=== PATIENT | male | born 1945 | race Caucasian/White ===

== ENCOUNTER 2018-04-19 00:56 | Inpatient (IN) | payer MEDICARE, OTHER ==
[~2018-04-19] VITALS: Ht 167.6 cm; Wt 72.6 kg
--- NOTE | 2018-04-19 01:13 | NUR ---
PT BIB PA WITH A C/O AGGRESSIVE BEHAVIOR TOWARDS CERTAIN STAFF (2 PEOPLE) AT [facility]. PT APPEARS PLEASANT AND COOPERATIVE. PT URINATED ON HIMSELF, BUT IS TRYING TO GIVE A URINE SAMPLE. PT WAS CHANGED INTO A GOWN AND IS ON THE MONITOR/CONTINUOUS PULSE OX. WILL CONTINUE TO MONITOR THE PT. Addendum: 04/19/18 at 0427 by KINZA PT URINATED ON HIMSELF. PT WAS CLEANED AND NEW LINENS APPLIED. PT REC'D A NEW GOWN.
--- NOTE | 2018-04-19 01:15 | NUR ---
PT IS UNABLE TO GIVE A URINE SAMPLE AT THIS TIME.
[2018-04-19] MEDS ORDERED: ESCI10TA PO (01:40)
[2018-04-19] MEDS ORDERED: LEVO50TA PO (01:40)
[2018-04-19] MEDS ORDERED: FOLI1TAB16 PO (01:40)
[2018-04-19] MEDS ORDERED: ATOR10TA PO (01:40)
[2018-04-19] MEDS ORDERED: ESOM40CA PO (01:40)
[2018-04-19] MEDS ORDERED: HYDR-4077 PO (01:58)
[2018-04-19] MEDS ORDERED: AMLO5TAB9 PO (01:58)
[2018-04-19] MEDS ORDERED: ACET-2067 PO (01:58)
[2018-04-19] MEDS ORDERED: ERGO400T7 PO (01:58)
[2018-04-19] MEDS ORDERED: DOCU-106 PO (01:58)
[2018-04-19] MEDS ORDERED: CARB200T PO (01:58)
[2018-04-19] MEDS ORDERED: MEMA7CAP PO (01:58)
[2018-04-19] MEDS ORDERED: GABA-532 PO (01:58)
[2018-04-19] MEDS ORDERED: ACET-2605 PO (01:58)
[2018-04-19] MEDS ORDERED: RAMI10CA69 PO (01:58)
[2018-04-19] MEDS ORDERED: LORA1TAB PO (01:58)
[2018-04-19] MEDS ORDERED: ASPI-605 PO (01:58)
[2018-04-19] MEDS ORDERED: LOSA100T31 PO (01:58)
[2018-04-19 02:08] LABS: BASOPHILS # (AUTO) 0.1 /CMM (0.0-0.2); BASOPHILS % (AUTO) 0.5 % (0.0-2.0); EOSINOPHILS % (AUTO) 0.6 % (0.0-6.0); HEMATOCRIT 40 % (39-51); HEMOGLOBIN 13.4 g/dL (13.5-17.5); LYMPHOCYTES # (AUTO) 1.4 /CMM (0.8-4.8); MEAN CORPUSCULAR HGB CONC 34 g/dl (31.0-36.0); MEAN CORPUSCULAR VOLUME 91 fL (80-96); MONOCYTES # (AUTO) 0.7 /CMM (0.1-1.30); MONOCYTES % (AUTO) 6.9 % (2.0-12.0); NEUTROPHILS # (AUTO) 7.3 /CMM (1.8-8.9); PLATELET COUNT (AUTO) 259 /CMM (150-450); RED BLOOD CELL COUNT(AUTO) 4.32 MIL/uL (4.5-6.0); WHITE BLOOD COUNT (AUTO) 9.5 K/uL (4.3-11.0)
[2018-04-19 02:19] LABS: CALCIUM, SERUM 9.1 mg/dL (8.5-10.1); CARBON DIOXIDE 29 mmol/L (21-32); CHLORIDE 97 mmol/L (98-107); CREATININE 0.7 mg/dL (0.6-1.3); GLUCOSE 104 mg/dL (74-106); POTASSIUM 3.8 mmol/L (3.5-5.1); SODIUM SERUM 133 mmol/L (136-145); UREA NITROGEN, BLOOD 10 mg/dL (7-18)
[2018-04-19 02:25] LABS: ALANINE AMINOTRANSFERASE 22 U/L (12-78); ALBUMIN 3.9 g/dL (3.4-5.0); ALCOHOL, BLOOD < 3 mg/dL (0-0); ALKALINE PHOSPHATASE 123 U/L (46-116); ASPARTATE AMINOTRANSFERASE 19 U/L (15-37); BILIRUBIN,DIRECT 0.1 mg/dL (0.0-0.2); BILIRUBIN,TOTAL 0.3 mg/dL (0.2-1.0); TOTAL PROTEIN, SERUM 7.4 g/dL (6.4-8.2)
[2018-04-19 02:26] LABS: ACETAMINOPHEN 0 ug/ml (10-30)
--- NOTE | 2018-04-19 03:05 | NUR ---
URINE SAMPLE OBTAINED
[2018-04-19 03:16] LABS: APPEARANCE,URINE CLEAR (CLEAR); BILIRUBIN,URINE NEGATIVE (NEGATIVE); BLOOD, URINE NEGATIVE Ery/uL (NEGATIVE); COLOR,URINE YELLOW (YELLOW); KETONES,URINE NEGATIVE (NEGATIVE); LEUKOCYTE ESTERASE ,URINE NEGATIVE (NEGATIVE); NITRITE, URINE NEGATIVE (NEGATIVE); PROTEIN,URINE NEGATIVE (NEGATIVE); UGLUCOSE NEGATIVE (NEGATIVE); UROBILINOGEN,URINE 0.2 EU/dL (0.2)
--- NOTE | 2018-04-19 03:45 | NUR ---
COY MCCLAIN LCSW, IS AT THE BEDSIDE EVALUATING THE PT.
--- NOTE | 2018-04-19 03:55 | NUR ---
PT IS BEING PLACED ON A 5150 HOLD BY COY MCCLAIN LCSW.
--- NOTE | 2018-04-19 03:56 | NUR ---
CALLING REPORT TO ANTONIO LAUREN.
--- NOTE | 2018-04-19 03:59 | NUR ---
PT IS GOING TO [facility]
--- NOTE | 2018-04-19 05:11 | NUR ---
PT APPEARS TO BE SLEEPING SOUNDLY WITH NO S/S OF PAIN OR DISTRESS.
--- NOTE | 2018-04-19 06:04 | NUR ---
PT IS GOING TO [facility]IA .
--- NOTE | 2018-04-19 06:15 | NUR ---
GPS ADMISSION NOTE, RECEIVED PATIENT FROM [facility]. PATIENT ARRIVED ON THIS UNIT AT 0615 VIA STRETCHER WITH 1 ART PROFESSOR ESCORT. PATIENT ADMITTED ON A 5150 HOLD FOR GD . PER HOLD PATIENT WAS CHOKING A FELLOW RESIDENT AT HIS FACILITY WHILE ACTING AGGRESSIVE TOWARD FACILITY STAFF. PATIENT HAS BEEN NON COMPLIANT WITH CARE. [facility] IS UNABLE TO PROVIDE THIS PATIENT FOOD INTERMEDIATE OR CLOTHING DUE TO A MENTAL DISORDER AND CURRENT MENTAL STATE OF THIS PATIENT. THE 5150 WAS REVIEWED AND THE DOCUMENTATION IN THE 5150 HOLD APPEARS TO REFLECT THE PRESENTATION OF THE PATIENT. UPON FACE TO FACE ASSESSMENT PATIENT IS CURRENTLY LYING IN BED AWAKE, HAS NO S/S OR COMPLAINTS OF PAIN. PATIENT IS DISPLAYING NO S/S OF APPARENT DISTRESS. PATIENT BREATHING IS UNLABORED WITH EQUAL RISE AND FALL OF THE CHEST. PATIENT IS ALERT AND ORIENTATED X 2 ON ROOM AIR. PATIENT ASSISTED WITH TURING AND REPOSITIONING Q2HR AND PRN FOR COMFORT AND CIRCULATION. PATIENT HAS NO NEEDS AT THIS TIME. PATIENT IS NOTED TO BEING ANXIOUS, DISHEVELED, DISORGANIZED, CONFUSED, COOPERATIVE, AND NEEDS REDIRECTION. PATIENT DENIES SUICIDE IDEATIONS AND HOMICIDAL IDEATIONS AT THIS TIME. PATIENT IS UNDER THE PSYCHIATRIC CARE OF DR. COLIN AND THE MEDICAL CARE OF DR PHAM. PATIENT BELONGINGS WERE INVENTORIED AND CHECKED FOR CONTRABAND. ALL CONTRABAND REMOVED AND STORED IN PATIENT HALLWAY LOCKER. PATIENT ADVANCED DIRECTIVES PREFERENCE, IMMUNIZATIONS QUESTIONER, NECESSARY PAPERWORK, AND SKIN ASSESSMENT COMPLETED. PATIENT ORIENTATED TO ROOM, FLOOR, AND STAFF WITH ALL QUESTIONS ANSWERED. PATIENT EDUCATED ON THE USE OF THE CALL RUBIO. PATIENT BED SIDE RAILS ARE UP X 2 FOR SAFETY. PATIENT BED IS LOCKED, LOW AND I WILL CONTINUE TO MONITOR THIS PATIENT Q 15 MIN WITH THE HELP OF STAFF TO MAINTAIN SAFETY.
[2018-04-19] MEDS ORDERED: MAGNESIUM HYDROXIDE 30 ML UDC PO PRN (06:30)
[2018-04-19] MEDS ORDERED: ACETAMINOPHEN 325 MG TABLET PO PRN (06:30)
[2018-04-19] MEDS ORDERED: MAG HYDROX/AL HYDROX/SIMETH 30 ML UDC PO PRN (06:30)
[2018-04-19 08:02] VITALS: BP 145/91
[2018-04-19] MEDS: GABAPENTIN 100 MG CAPSULE PO SCH ×2 (10:30→17:00)
[2018-04-19] MEDS: CARBAMAZEPINE 200 MG TABLET PO SCH ×2 (10:30→17:00)
[2018-04-19] MEDS: ESCITALOPRAM OXALATE (10 MG) 10 MG TABLET PO SCH (10:30)
[2018-04-19] MEDS: QUETIAPINE FUMARATE 25 MG TABLET PO SCH ×2 (10:30→17:00)
[2018-04-19 16:24] VITALS: BP 162/88
[2018-04-19] MEDS: MEMANTINE HCL 5 MG TABLET PO SCH (17:00)
[2018-04-19] MEDS: AMLODIPINE BESYLATE 5 MG TABLET PO SCH (17:00)
[2018-04-19] MEDS: DOCUSATE SODIUM 100 MG CAPSULE PO SCH (17:00)
[2018-04-19] MEDS: ACETAMINOPHEN 325 MG TABLET PO SCH (17:00)
[2018-04-19] MEDS: hydrALAZINE HCL 50 MG TABLET PO SCH (17:00)
[2018-04-19 20:00] VITALS: BP 146/92
[2018-04-19] MEDS: LORAZEPAM 0.5 MG TABLET PO PRN (20:51)
[2018-04-19] MEDS: ATORVASTATIN 10 MG TABLET PO SCH (21:07)
[2018-04-19] MEDS: TEMAZEPAM 7.5 MG CAPSULE PO PRN (23:20)
[2018-04-20 06:55] LABS: BASOPHILS # (AUTO) 0.1 /CMM (0.0-0.2); BASOPHILS % (AUTO) 0.8 % (0.0-2.0); EOSINOPHILS % (AUTO) 0.7 % (0.0-6.0); HEMATOCRIT 42 % (39-51); LYMPHOCYTES # (AUTO) 1.1 /CMM (0.8-4.8); LYMPHOCYTES % (AUTO) 10.1 % (20.0-44.0); MEAN CORPUSCULAR HGB CONC 34 g/dl (31.0-36.0); MEAN CORPUSCULAR VOLUME 91 fL (80-96); MONOCYTES # (AUTO) 0.9 /CMM (0.1-1.30); MONOCYTES % (AUTO) 8.4 % (2.0-12.0); NEUTROPHILS # (AUTO) 8.8 /CMM (1.8-8.9); PLATELET COUNT (AUTO) 327 /CMM (150-450); RED BLOOD CELL COUNT(AUTO) 4.59 MIL/uL (4.5-6.0)
[2018-04-20 07:15] LABS: ALANINE AMINOTRANSFERASE 31 U/L (12-78); ALBUMIN 4.3 g/dL (3.4-5.0); ALKALINE PHOSPHATASE 134 U/L (46-116); ASPARTATE AMINOTRANSFERASE 36 U/L (15-37); BILIRUBIN,TOTAL 0.5 mg/dL (0.2-1.0); CALCIUM, SERUM 9.3 mg/dL (8.5-10.1); CARBON DIOXIDE 27 mmol/L (21-32); CHLORIDE 96 mmol/L (98-107); CHOLESTEROL 177 mg/dL (<200); CREATININE 0.9 mg/dL (0.6-1.3); GLUCOSE 94 mg/dL (74-106); HDL CHOLESTEROL 84 mg/dL (40-60); LDL 93 mg/dL (0-99); POTASSIUM 3.9 mmol/L (3.5-5.1); SODIUM SERUM 133 mmol/L (136-145); TOTAL PROTEIN, SERUM 8.6 g/dL (6.4-8.2); TRIGLYCERIDES 62 mg/dL (30-150); UREA NITROGEN, BLOOD 16 mg/dL (7-18)
[2018-04-20 08:00] VITALS: BP 127/68
[2018-04-20] MEDS: ACETAMINOPHEN 325 MG TABLET PO SCH ×2 (08:23→17:33)
[2018-04-20] MEDS: DOCUSATE SODIUM 100 MG CAPSULE PO SCH ×2 (08:23→17:33)
[2018-04-20] MEDS: LOSARTAN POTASSIUM 50 MG TABLET PO SCH (08:24)
[2018-04-20] MEDS: PANTOPRAZOLE 40 MG TABLET.DR PO SCH (08:24)
[2018-04-20] MEDS: QUETIAPINE FUMARATE 25 MG TABLET PO SCH ×2 (08:24→17:33)
[2018-04-20] MEDS: LORAZEPAM 0.5 MG TABLET PO PRN ×2 (08:24→17:33)
[2018-04-20] MEDS: FOLIC ACID 1 MG TABLET PO SCH (08:24)
[2018-04-20] MEDS: ASPIRIN EC 81 MG TABLET.DR PO SCH (08:24)
--- NOTE | 2018-04-20 08:24 | NUR ---
RN NOTES ADMINISTERED ATIVAN 0.5 MG PO PRN FOR ANXIETY, PATIENT AWOL RISK, WONDERS, V/S TAKEN BP 127/68, P-63, CONTINUED MONITORING.
[2018-04-20] MEDS: GABAPENTIN 100 MG CAPSULE PO SCH ×2 (08:25→17:33)
[2018-04-20] MEDS: MEMANTINE HCL 5 MG TABLET PO SCH ×2 (08:25→17:00)
[2018-04-20] MEDS: CARBAMAZEPINE 200 MG TABLET PO SCH ×2 (08:25→17:33)
[2018-04-20] MEDS: ESCITALOPRAM OXALATE (10 MG) 10 MG TABLET PO SCH (08:25)
[2018-04-20] MEDS: hydrALAZINE HCL 50 MG TABLET PO SCH ×3 (08:25→17:00)
[2018-04-20] MEDS: LEVOTHYROXINE SODIUM 50 MCG TABLET PO SCH (08:48)
[2018-04-20] MEDS: AMLODIPINE BESYLATE 5 MG TABLET PO SCH ×2 (09:00→17:00)
--- NOTE | 2018-04-20 14:00 | NUR ---
SANDI contacted [facility] Address: [address] [place] [address] and spoke with Peña, servicenow administrator who confirmed pt can return to the facility.
--- NOTE | 2018-04-20 14:26 | NUR ---
SW contacted pts Lilian [phone] who stated her son Scott [phone] is pts Legal Guardian and all phone calls should be directed to him.
--- NOTE | 2018-04-20 14:28 | NUR ---
SANDI contacted pts son Scott [phone] for discharge planning and collateral information. Per son, he stated he is pts LPS conservator. SW requested documentation to place in pts chart.
[2018-04-20 16:00] VITALS: BP 100/75
--- NOTE | 2018-04-20 17:33 | NUR ---
RN NOTES PATIENT VERY ANXIOUS, DELUSIONAL, PARANOID, HARD TO FOLLOW DIRECTION, ADMINISTERED ATIVAN 0.5 MG PO PRN PRESCRIBED. V/S TAKEN BP 100/75, P-85. BP MEDICATION HELD BECAUSE OF LOW BP.
[2018-04-20 20:02] VITALS: BP 131/74
[2018-04-20] MEDS: ATORVASTATIN 10 MG TABLET PO SCH (21:30)
[2018-04-20] MEDS: TEMAZEPAM 7.5 MG CAPSULE PO PRN (22:04)
[2018-04-21] MEDS: LORAZEPAM 0.5 MG TABLET PO PRN ×3 (01:44→19:33)
[2018-04-21 08:00] VITALS: BP 115/90
[2018-04-21] MEDS: QUETIAPINE FUMARATE 25 MG TABLET PO SCH ×2 (08:27→17:00)
[2018-04-21] MEDS: FOLIC ACID 1 MG TABLET PO SCH (08:27)
[2018-04-21] MEDS: CARBAMAZEPINE 200 MG TABLET PO SCH ×2 (08:27→17:00)
[2018-04-21] MEDS: ACETAMINOPHEN 325 MG TABLET PO SCH ×2 (08:27→17:00)
[2018-04-21] MEDS: GABAPENTIN 100 MG CAPSULE PO SCH ×2 (08:27→17:00)
[2018-04-21] MEDS: ESCITALOPRAM OXALATE (10 MG) 10 MG TABLET PO SCH (08:27)
[2018-04-21] MEDS: PANTOPRAZOLE 40 MG TABLET.DR PO SCH (08:27)
[2018-04-21] MEDS: DOCUSATE SODIUM 100 MG CAPSULE PO SCH ×2 (08:27→17:00)
[2018-04-21] MEDS: ASPIRIN EC 81 MG TABLET.DR PO SCH (08:27)
[2018-04-21] MEDS: LEVOTHYROXINE SODIUM 50 MCG TABLET PO SCH (08:27)
[2018-04-21] MEDS: MEMANTINE HCL 5 MG TABLET PO SCH ×2 (08:27→17:00)
[2018-04-21] MEDS: hydrALAZINE HCL 50 MG TABLET PO SCH ×3 (08:30→17:00)
[2018-04-21] MEDS: AMLODIPINE BESYLATE 5 MG TABLET PO SCH ×2 (08:31→17:00)
[2018-04-21] MEDS: LOSARTAN POTASSIUM 50 MG TABLET PO SCH (08:31)
--- NOTE | 2018-04-21 08:40 | NUR ---
GPS/RN-NOTES PATIENT IN THE DAY ROOM UP IN THE CHAIR NOTED WITH HYPERVERBAL WITH LOUD VOICE,TALKING NONSENSICAL. NEEDS FREQUENT REDIRECTIONS. ATIVAN 0.5MG P.O GIVEN PRN ORDER. WILL CONT. MONITORING FOR SAFETY AND BEHAVIOR.
[2018-04-21 13:49] VITALS: BP 115/88
[2018-04-21 16:05] VITALS: BP 115/88
--- NOTE | 2018-04-21 17:11 | NUR ---
GPS/RN-NOTES PATIENT STRONGLY REFUSED ALL 1700 MEDICATIONS DESPITE EXPLANATIONS RISK AND BENEFITS. OFFERED X3. CHARGE NURSE AWARE.
[2018-04-21 19:56] VITALS: BP 99/51
[2018-04-21] MEDS: ATORVASTATIN 10 MG TABLET PO SCH (21:07)
[2018-04-21] MEDS: TEMAZEPAM 7.5 MG CAPSULE PO PRN (22:20)
[2018-04-21 23:00] VITALS: BP 105/63
[2018-04-22 08:00] VITALS: BP 129/64
[2018-04-22] MEDS: hydrALAZINE HCL 50 MG TABLET PO SCH ×3 (09:00→16:43)
[2018-04-22] MEDS: FOLIC ACID 1 MG TABLET PO SCH (09:00)
[2018-04-22] MEDS: LOSARTAN POTASSIUM 50 MG TABLET PO SCH (09:00)
[2018-04-22] MEDS: AMLODIPINE BESYLATE 5 MG TABLET PO SCH ×2 (09:00→16:41)
[2018-04-22] MEDS: MEMANTINE HCL 5 MG TABLET PO SCH ×2 (09:00→16:43)
[2018-04-22] MEDS: DOCUSATE SODIUM 100 MG CAPSULE PO SCH ×2 (09:00→16:41)
[2018-04-22] MEDS: ACETAMINOPHEN 325 MG TABLET PO SCH ×2 (09:00→16:44)
[2018-04-22] MEDS: ESCITALOPRAM OXALATE (10 MG) 10 MG TABLET PO SCH (09:10)
[2018-04-22] MEDS: PANTOPRAZOLE 40 MG TABLET.DR PO SCH (09:10)
[2018-04-22] MEDS: LEVOTHYROXINE SODIUM 50 MCG TABLET PO SCH (09:11)
[2018-04-22] MEDS: ASPIRIN EC 81 MG TABLET.DR PO SCH (09:11)
[2018-04-22] MEDS: GABAPENTIN 100 MG CAPSULE PO SCH ×2 (09:11→16:41)
[2018-04-22] MEDS: QUETIAPINE FUMARATE 25 MG TABLET PO SCH ×2 (09:11→16:43)
[2018-04-22] MEDS: CARBAMAZEPINE 200 MG TABLET PO SCH ×2 (09:11→16:41)
--- NOTE | 2018-04-22 09:53 | NUR ---
INITIAL DISCHARGE PLAN: Per robert Chavez [phone] pt will return to [facility] Address: [address] [place] [address] . SANDI spoke with Peña, windows application administrator and confirmed pt is able to return once stable for discharge. SANDI will help form a safe and proper discharge in collaboration with robert and .
[2018-04-22 16:00] VITALS: BP 158/87
[2018-04-22 20:00] VITALS: BP 107/42
[2018-04-22] MEDS: ATORVASTATIN 10 MG TABLET PO SCH (21:14)
[2018-04-22] MEDS: TEMAZEPAM 7.5 MG CAPSULE PO PRN (22:04)
[2018-04-22 23:53] VITALS: BP 115/65
[2018-04-23] MEDS: LORAZEPAM 0.5 MG TABLET PO PRN (01:07)
--- NOTE | 2018-04-23 01:08 | NUR ---
RN GPS NOTES: PT. VERY AGRESSIVE, HYPERVERBAL LOUD TALKING YELLING SCREAMING NOT FOLLOWING ANY REDIRECTIONS , PACING IN HALLWAY KICKING ,BANGING ARMS HEAD WITH SIDE RAIL , ATIVAN 0.5 MG PO PRN GIVEN ,WILL CONTINUE TO MONITOR.
[2018-04-23] MEDS: PANTOPRAZOLE 40 MG TABLET.DR PO SCH ×2 (07:28→07:30)
[2018-04-23 08:00] VITALS: BP 103/73
[2018-04-23] MEDS: AMLODIPINE BESYLATE 5 MG TABLET PO SCH ×2 (08:17→16:34)
[2018-04-23] MEDS: LOSARTAN POTASSIUM 50 MG TABLET PO SCH (08:17)
[2018-04-23] MEDS: hydrALAZINE HCL 50 MG TABLET PO SCH ×3 (08:17→16:33)
[2018-04-23] MEDS: CARBAMAZEPINE 200 MG TABLET PO SCH ×3 (08:19→16:35)
[2018-04-23] MEDS: ESCITALOPRAM OXALATE (10 MG) 10 MG TABLET PO SCH ×2 (08:19→09:00)
[2018-04-23] MEDS: QUETIAPINE FUMARATE 25 MG TABLET PO SCH ×3 (08:19→16:35)
[2018-04-23] MEDS: MEMANTINE HCL 5 MG TABLET PO SCH ×3 (08:19→16:34)
[2018-04-23] MEDS: DOCUSATE SODIUM 100 MG CAPSULE PO SCH ×3 (08:19→16:34)
[2018-04-23] MEDS: GABAPENTIN 100 MG CAPSULE PO SCH ×3 (08:19→16:34)
[2018-04-23] MEDS: ASPIRIN EC 81 MG TABLET.DR PO SCH ×2 (08:19→09:00)
[2018-04-23] MEDS: FOLIC ACID 1 MG TABLET PO SCH ×2 (08:19→09:00)
[2018-04-23] MEDS: LEVOTHYROXINE SODIUM 50 MCG TABLET PO SCH ×2 (08:23→09:00)
[2018-04-23] MEDS: ACETAMINOPHEN 325 MG TABLET PO SCH ×3 (08:23→16:35)
[2018-04-23] MEDS ORDERED: OLANZAPINE 10 MG VIAL IM STA (09:16)
--- NOTE | 2018-04-23 09:25 | NUR ---
GPS/RN - Notes Patient was pacing in the hallway, non redirectable, very aggressive, threw water and squeezed the hand of the staff. Patient refused all his morning medications and offered to give Ativan to calm him down but also refused. Called Dr. Odonnell regarding patient's behavior with order to give Zyprexa 5 mg IM once.
[2018-04-23 16:05] VITALS: BP 161/91
[2018-04-23] MEDS: risperiDONE-M 0.5 MG TAB.RAPDIS PO SCH (19:00)
--- NOTE | 2018-04-23 19:30 | NUR ---
GPS RN NOTE, RECEIVED PATIENT AWAKE AND IN BED, NO S/S OR COMPLAINTS OF PAIN AT THIS TIME. PATIENT IS DISPLAYING NO S/S OF APPARENT DISTRESS AT THIS TIME. PATIENT BREATHING IS UNLABORED WITH EQUAL RISE AND FALL OF THE CHEST. PATIENT IS ALERT AND ORIENTED X 1 ON ROOM AIR WITH A SPO2 OF 97%. PATIENT IS REFUSING MEDICATION, UNCOOPERATIVE, CONFUSED, ANXIOUS, DISORGANIZED, PARANOID, AND NEEDS REDIRECTION. PATIENT IS CONFUSED BUT DENIES SUICIDE IDEATIONS AND HOMICIDAL IDEATIONS AT THIS TIME. PATIENT ASSISTED WITH TURNING AND REPOSITIONING Q 2HRS AND PRN FOR COMFORT AND CIRCULATION. PATIENT HAS NO NEEDS AT THIS TIME. PATIENT EDUCATED ON THE USE OF THE CALL RUBIO. PATIENT BED SIDE RAILS UP X 2 FOR SAFETY, BED IS LOCKED, LOW, AND I WILL CONTINUE TO MONITOR AND MAINTAIN SAFETY Q15 MIN WITH THE HELP OF STAFF.
--- NOTE | 2018-04-23 19:43 | NUR ---
GPS RN NOTE, PATIENT REFUSED TO TAKE RISPERDAL-M 0.5MG PO. OFFERED RISPERDAL-M THREE TIMES AND STILL PATIENT REFUSED STATING, " NO YOU THAT MEDICATION IT'S NO GOOD FOR ME ". EDUCATED THIS PATIENT ON THE RISKS AND BENEFITS OF TAKING AND REFUSING RISPERDAL. WILL CONTINUE TO MONITOR THIS PATIENT.
[2018-04-23] MEDS: ATORVASTATIN 10 MG TABLET PO SCH (21:37)
--- NOTE | 2018-04-23 21:37 | NUR ---
GPS RN NOTE, PATIENT REFUSED TO TAKE LIPITOR 10MG PO. OFFERED LIPITOR THREE TIMES AND STILL PATIENT REFUSED STATING, " NO YOU TAKE THAT MEDICATION IT'S NO GOOD FOR ME ". EDUCATED THIS PATIENT ON THE RISKS AND BENEFITS OF TAKING AND REFUSING LIPITOR. WILL CONTINUE TO MONITOR THIS PATIENT.
[2018-04-24] MEDS: PANTOPRAZOLE 40 MG TABLET.DR PO SCH (07:30)
[2018-04-24 08:00] VITALS: BP 136/96
[2018-04-24] MEDS: AMLODIPINE BESYLATE 5 MG TABLET PO SCH ×2 (09:00→17:00)
[2018-04-24] MEDS: FOLIC ACID 1 MG TABLET PO SCH (09:00)
[2018-04-24] MEDS: LOSARTAN POTASSIUM 50 MG TABLET PO SCH (09:00)
[2018-04-24] MEDS: GABAPENTIN 100 MG CAPSULE PO SCH ×2 (09:00→17:00)
[2018-04-24] MEDS: hydrALAZINE HCL 50 MG TABLET PO SCH ×3 (09:00→17:00)
[2018-04-24] MEDS: MEMANTINE HCL 5 MG TABLET PO SCH ×2 (09:00→17:00)
[2018-04-24] MEDS: LEVOTHYROXINE SODIUM 50 MCG TABLET PO SCH (09:00)
[2018-04-24] MEDS: CARBAMAZEPINE 200 MG TABLET PO SCH ×2 (09:00→17:00)
[2018-04-24] MEDS: ASPIRIN EC 81 MG TABLET.DR PO SCH (09:00)
[2018-04-24] MEDS: ACETAMINOPHEN 325 MG TABLET PO SCH ×2 (09:00→17:00)
[2018-04-24] MEDS: DOCUSATE SODIUM 100 MG CAPSULE PO SCH ×2 (09:00→17:00)
[2018-04-24] MEDS: risperiDONE-M 0.5 MG TAB.RAPDIS PO SCH ×2 (09:00→20:17)
--- NOTE | 2018-04-24 09:02 | NUR ---
GPS/RN-NOTES PATIENT REFUSED ALL AM MEDICATIONS DESPITE EXPLANATION RISK AND BENEFITS WITH THE HELP OF PORTUGUESE STAFF. PATIENT JUST KEEP LAUGHING AND STATED" NO". OFFERED X3.
[2018-04-24] MEDS ORDERED: OLANZAPINE 10 MG VIAL IM PRN ×2 (13:57→18:00)
--- NOTE | 2018-04-24 14:18 | NUR ---
GPS/RN-NOTES RECEIVED VERBAL ORDER FROM DR. COLIN TO GIVE FIRST DOSE OF ZYPREXA 2.5MG IM FOR REFUSAL OF P.O RISPERDAL EARLIER TODAY.GIVEN AT RIGHT DELTOID. PATIENT TOLERATED WELL.
[2018-04-24 16:00] VITALS: BP 154/92
--- NOTE | 2018-04-24 16:15 | NUR ---
GPS/RN-NOTES BUSINESS REPRESENTATIVE MADE DR. COLIN AWARE THAT THE FIRST ZYPREXA IM DOSE WAS ADMINISTERED AT 1411 ALSO VERIFIED WITH HER IF I WILL STILL ADMINISTER THE SCHEDULE FOR 1700 ZYPREXA IM A BACK UP ORDER INCASE PT. REFUSED RISPERDAL P.O . DR. COLIN STATED" DON'T GIVE THE 1700 RISPERDAL OR IM BACK UP". I WILL CHANGE THE FREQUENCY TO Q12 HR, DON'T WORRY I WILL CHANGE IT MY SELF".CHARGE NURSE AWARE.
[2018-04-24 16:19] LABS: BASOPHILS # (AUTO) 0.1 /CMM (0.0-0.2); BASOPHILS % (AUTO) 1.1 % (0.0-2.0); EOSINOPHILS % (AUTO) 2.4 % (0.0-6.0); HEMATOCRIT 40 % (39-51); HEMOGLOBIN 13.2 g/dL (13.5-17.5); LYMPHOCYTES # (AUTO) 1.4 /CMM (0.8-4.8); LYMPHOCYTES % (AUTO) 17.8 % (20.0-44.0); MEAN CORPUSCULAR HGB CONC 33 g/dl (31.0-36.0); MEAN CORPUSCULAR VOLUME 93 fL (80-96); MONOCYTES # (AUTO) 0.9 /CMM (0.1-1.30); MONOCYTES % (AUTO) 11.9 % (2.0-12.0); NEUTROPHILS # (AUTO) 5.1 /CMM (1.8-8.9); NEUTROPHILS % (AUTO) 66.8 % (43.0-81.0); PLATELET COUNT (AUTO) 321 /CMM (150-450); RED BLOOD CELL COUNT(AUTO) 4.27 MIL/uL (4.5-6.0); WHITE BLOOD COUNT (AUTO) 7.7 K/uL (4.3-11.0)
[2018-04-24 16:48] LABS: ALANINE AMINOTRANSFERASE 57 U/L (12-78); ALBUMIN 4.3 g/dL (3.4-5.0); ALKALINE PHOSPHATASE 130 U/L (46-116); ASPARTATE AMINOTRANSFERASE 74 U/L (15-37); BILIRUBIN,TOTAL 0.7 mg/dL (0.2-1.0); CALCIUM, SERUM 9.3 mg/dL (8.5-10.1); CARBON DIOXIDE 28 mmol/L (21-32); CHLORIDE 100 mmol/L (98-107); CREATININE 0.9 mg/dL (0.6-1.3); GLUCOSE 92 mg/dL (74-106); SODIUM SERUM 139 mmol/L (136-145); TOTAL PROTEIN, SERUM 8.5 g/dL (6.4-8.2); UREA NITROGEN, BLOOD 21 mg/dL (7-18)
--- NOTE | 2018-04-24 16:53 | NUR ---
GPS/RN-NOTES PATIENT'S SON ALF OSORIO ALSO DPOA OF THE PATIENT MADE AWARE OF THE ZYPREXA IM MEDICATIONS BACK UP WHEN PATIENT REFUSED RISPERDAL P.O. ALF STATED"THAT IS GOOD".
[2018-04-24] MEDS ORDERED: risperiDONE-M 0.5 MG TAB.RAPDIS PO SCH (17:00)
[2018-04-24 20:00] VITALS: BP 128/93
[2018-04-24] MEDS: ATORVASTATIN 10 MG TABLET PO SCH (20:17)
[2018-04-24] MEDS: TEMAZEPAM 7.5 MG CAPSULE PO PRN (20:18)
--- NOTE | 2018-04-24 20:18 | NUR ---
PATIENT AGITATED, CONFUSED, FIDGETY, NIGHT MEDS ADMINISTERED, CRUSHED AND MIXED WITH APPLE SAUCE.
--- NOTE | 2018-04-24 20:19 | NUR ---
PATIENT FIDGETY, UNABLE TO KEEP STILL, SLEEPING PILL ADMINISTERED, TEMAZEPAM 7.5 MG CAP PO
[2018-04-25] MEDS: LORAZEPAM 0.5 MG TABLET PO PRN ×2 (01:08→16:37)
--- NOTE | 2018-04-25 01:08 | NUR ---
AWAKE, AGITATED, UNABLE TO SLEEP, ATIVAN 0.5 MG TAB PO GIVEN.
[2018-04-25 08:23] VITALS: BP 128/61
[2018-04-25] MEDS: MEMANTINE HCL 5 MG TABLET PO SCH ×2 (09:55→17:58)
[2018-04-25] MEDS: PANTOPRAZOLE 40 MG TABLET.DR PO SCH (09:56)
[2018-04-25] MEDS: ASPIRIN EC 81 MG TABLET.DR PO SCH (09:56)
[2018-04-25] MEDS: DOCUSATE SODIUM 100 MG CAPSULE PO SCH ×2 (09:56→17:57)
[2018-04-25] MEDS: ACETAMINOPHEN 325 MG TABLET PO SCH ×2 (09:56→17:56)
[2018-04-25] MEDS: LEVOTHYROXINE SODIUM 50 MCG TABLET PO SCH (09:56)
[2018-04-25] MEDS: GABAPENTIN 100 MG CAPSULE PO SCH ×2 (09:56→17:57)
[2018-04-25] MEDS: FOLIC ACID 1 MG TABLET PO SCH (09:56)
[2018-04-25] MEDS: AMLODIPINE BESYLATE 5 MG TABLET PO SCH ×2 (09:57→17:57)
[2018-04-25] MEDS: CARBAMAZEPINE 200 MG TABLET PO SCH ×2 (09:57→17:56)
[2018-04-25] MEDS: hydrALAZINE HCL 50 MG TABLET PO SCH ×3 (10:00→17:00)
[2018-04-25] MEDS: risperiDONE-M 0.5 MG TAB.RAPDIS PO SCH ×2 (10:00→20:52)
[2018-04-25] MEDS: LOSARTAN POTASSIUM 50 MG TABLET PO SCH (13:15)
[2018-04-25 16:00] VITALS: BP 129/77
--- NOTE | 2018-04-25 16:37 | NUR ---
GIVEN ATIVAN 0.5 MG PO WITH MUCH ENCOURAGEMENT.FIGHTING AND YELLING OUT WITH MED ADM. ATTEMPT.
[2018-04-25 20:00] VITALS: BP 141/83
[2018-04-25] MEDS: ATORVASTATIN 10 MG TABLET PO SCH (21:25)
[2018-04-25] MEDS: TEMAZEPAM 7.5 MG CAPSULE PO PRN (21:32)
--- NOTE | 2018-04-25 23:50 | NUR ---
GPS PRN REFUSAL NOTES PATIENT REFUSED ATIVAN DUE TO AGITATION AND COMBATIVE TOWARDS STAFF. DESPITE OF EDUCATION GIVEN, PATIENT STILL STRONGLY REFUSED. WASTED IN [employer] AND DISPOSED IN MED WASTE DISPOSAL
[2018-04-26] MEDS ORDERED: OLANZAPINE 10 MG VIAL IM ONE (00:30)
[2018-04-26] MEDS ORDERED: LORAZEPAM INJ 2 MG/ML VIAL IM ONE ×2 (00:30→14:30)
--- NOTE | 2018-04-26 01:05 | NUR ---
GPS RN NOTES PATIENT CONTINUES TO BE AGITATED, UNCOOPERATIVE, AGGRESSIVE AND HOSTILE TO ALL THE STAFF. PT NOTED TO HAVE PULLING OUT HIS HAIR. PATIENT HAS ATTEMPTED TO STRIKE AT THE STAFF WHILE CARE IS BEING PROVIDED. UNABLE TO FOLLOW INSTRUCTION/REDIRECTION. PAGED DR. JAEGER AND RECEIVED VERBAL ORDER OF ATIVAN 1MG IM X1 AND ZYPREXA 5MG IM X1. ORDERS NOTED AND CARRIED OUT. WILL MONITOR MEDICATION FOR EFFECTIVENESS AND PATIENT SAFETY. Addendum: 04/26/18 at 0211 by ANNIE WEBB RN TELEPHONE ORDER NOT VERBAL ORDER
--- NOTE | 2018-04-26 06:04 | NUR ---
GPS/RN-PATIENT IS NON REDIRECTABLE.ATTEMPTED TO GET OUT OF [place] CHAIR SEVERAL TIMES AND WAS ABOUT TO FALL.CONCERNED FOR HIS SAFETY, 1:1 SITTER ORDER OBTAINED.
[2018-04-26] MEDS: PANTOPRAZOLE 40 MG TABLET.DR PO SCH (07:30)
[2018-04-26 08:00] VITALS: BP 129/69
[2018-04-26] MEDS: ACETAMINOPHEN 325 MG TABLET PO SCH ×2 (09:00→17:00)
[2018-04-26] MEDS: AMLODIPINE BESYLATE 5 MG TABLET PO SCH ×2 (09:00→17:00)
[2018-04-26] MEDS: FOLIC ACID 1 MG TABLET PO SCH (09:00)
[2018-04-26] MEDS: ASPIRIN EC 81 MG TABLET.DR PO SCH (09:00)
[2018-04-26] MEDS: DOCUSATE SODIUM 100 MG CAPSULE PO SCH ×2 (09:00→17:00)
[2018-04-26] MEDS: LOSARTAN POTASSIUM 50 MG TABLET PO SCH (09:00)
[2018-04-26] MEDS: GABAPENTIN 100 MG CAPSULE PO SCH ×2 (09:00→17:00)
[2018-04-26] MEDS: MEMANTINE HCL 5 MG TABLET PO SCH ×2 (09:00→17:00)
[2018-04-26] MEDS: hydrALAZINE HCL 50 MG TABLET PO SCH ×3 (09:00→17:00)
[2018-04-26] MEDS: CARBAMAZEPINE 200 MG TABLET PO SCH ×2 (09:00→17:00)
[2018-04-26] MEDS: risperiDONE-M 0.5 MG TAB.RAPDIS PO SCH ×3 (09:00→21:07)
[2018-04-26] MEDS: LEVOTHYROXINE SODIUM 50 MCG TABLET PO SCH (09:00)
--- NOTE | 2018-04-26 09:45 | NUR ---
GPS/RN-NOTES PATIENT REFUSED MEDICATIONS DID OFFERED AND EXPLAINED RISK AND BENEFITS WITH GREENLANDIC SPEAKING STAFF, PATIENT SPITTED OUT MEDICATIONS.PATIENT KEEP LAUGHING WITH NO REASON WITH EPISODE OF AGGRESSIVE HITTING STAFF WITH BOTH HANDS AND GETTING OUT OF BED UNASSISTED. NEEDS FREQUENT REDIRECTIONS. CONT. ON 1:1 MONITORING FOR SAFETY AND BEHAVIOR.
--- NOTE | 2018-04-26 11:59 | NUR ---
GPS/RN-NOTES PATIENT ABLE TO TAKE RISPERDAL M 0.5MG P.O AT THIS TIME.
[2018-04-26 13:45] VITALS: BP 130/74
--- NOTE | 2018-04-26 14:25 | NUR ---
Pt. is highly agitated, aggressive, combative, breaking the side rail of the bed by kicking. Dr. Palma made aware and ordered Ativan 2 mg IM x1.
[2018-04-26 14:40] VITALS: BP 129/77
[2018-04-26 16:00] VITALS: BP 129/77
--- NOTE | 2018-04-26 16:30 | NUR ---
GPS/RN-NOTES PATIENT AWAKE,ALERT LAYING IN BED CALM AT THIS TIME.NO ACUTE DISTRESS NOTED.
--- NOTE | 2018-04-26 17:54 | NUR ---
GPS/RN-NOTES PATIENT REFUSED ALL 1700 MEDICATIONS.OFFERED X3
[2018-04-26 20:10] VITALS: BP 163/91
[2018-04-26 21:00] VITALS: BP 109/76
[2018-04-26] MEDS: ATORVASTATIN 10 MG TABLET PO SCH (21:07)
[2018-04-26] MEDS: LORAZEPAM 0.5 MG TABLET PO PRN (21:31)
--- NOTE | 2018-04-26 21:31 | NUR ---
GPS RN PRN NOTES: PATIENT IS AWAKE, AGITATED, UNABLE TO SLEEP, ATIVAN 0.5 MG TAB PO GIVEN ORDERED. WILL CONTINUE TO MONITOR CLOSELY PATIENT'S SAFETY AND BEHAVIOR.
[2018-04-26] MEDS: TEMAZEPAM 7.5 MG CAPSULE PO PRN (21:41)
[2018-04-27] MEDS: PANTOPRAZOLE 40 MG TABLET.DR PO SCH (07:30)
[2018-04-27 08:00] VITALS: BP 158/91
[2018-04-27] MEDS: ASPIRIN EC 81 MG TABLET.DR PO SCH (09:00)
[2018-04-27] MEDS: risperiDONE-M 0.5 MG TAB.RAPDIS PO SCH (09:00)
[2018-04-27] MEDS: LOSARTAN POTASSIUM 50 MG TABLET PO SCH (09:00)
[2018-04-27] MEDS: LEVOTHYROXINE SODIUM 50 MCG TABLET PO SCH (09:00)
[2018-04-27] MEDS: DOCUSATE SODIUM 100 MG CAPSULE PO SCH ×2 (09:00→17:00)
[2018-04-27] MEDS: GABAPENTIN 100 MG CAPSULE PO SCH ×2 (09:00→17:00)
[2018-04-27] MEDS: CARBAMAZEPINE 200 MG TABLET PO SCH ×2 (09:00→17:00)
[2018-04-27] MEDS: FOLIC ACID 1 MG TABLET PO SCH (09:00)
[2018-04-27] MEDS: MEMANTINE HCL 5 MG TABLET PO SCH ×2 (09:00→17:00)
[2018-04-27] MEDS: AMLODIPINE BESYLATE 5 MG TABLET PO SCH ×2 (09:00→17:00)
[2018-04-27] MEDS: hydrALAZINE HCL 50 MG TABLET PO SCH ×3 (09:00→17:00)
[2018-04-27] MEDS: ACETAMINOPHEN 325 MG TABLET PO SCH ×2 (09:00→17:00)
--- NOTE | 2018-04-27 10:45 | NUR ---
RN NOTES PATIENT REFUSED SCHEDULED MEDICATION, SPIT OUT. PATIENT CONSERVE, ADMINISTERED ZYPREXA 0.25 MG/ML IM LEFT UPPER GLUTEAL AREA PER REFUSAL OF PO MEDICATION. 1:1 SITTER NEXT TO THE BED FOR SAFETY, CONTINUED MONITORING.
--- NOTE | 2018-04-27 13:35 | NUR ---
SANDI contacted pts son Scott [phone] and left a voicemail for callback.
[2018-04-27] MEDS ORDERED: OLANZAPINE 10 MG VIAL IM PRN ×2 (15:30→16:30)
[2018-04-27 16:00] VITALS: BP 151/74
--- NOTE | 2018-04-27 16:14 | NUR ---
SW contacted pts son Scott [phone] and discussed discharge plan. SW informed pts son that Psychiatrist is recommending SNF placement for 1 month before pt returns to Assisted Living due to pts aggressive behavior and also refusal to take medication and pt not wanting to eat. Pts son agrees and states that he is okay with pt being discharged to a SNF before returning to [facility].
[2018-04-27] MEDS ORDERED: risperiDONE-M 0.5 MG TAB.RAPDIS PO SCH ×2 (17:00→21:00)
--- NOTE | 2018-04-27 18:17 | NUR ---
RN NOTES PATIENT VERY CONFUSED REFUSED BREKFAST, LUNCH, AND DINNER, ALSO REFUSED SCHEDULED MEDICATION. BOTH MD'S AWARE OF, 1:1 SITTER NEXT TO THE BED FOR SAFETY, BUT PATIENT DRINKING WATER , CONTINUED MONITORING.
--- NOTE | 2018-04-27 19:30 | NUR ---
GPS RN NOTE, RECEIVED PATIENT AWAKE AND IN BED, NO S/S OR COMPLAINTS OF PAIN AT THIS TIME. PATIENT IS DISPLAYING NO S/S OF APPARENT DISTRESS AT THIS TIME. PATIENT BREATHING IS UNLABORED WITH EQUAL RISE AND FALL OF THE CHEST. PATIENT IS ALERT AND ORIENTED X 1 ON ROOM AIR WITH A SPO2 OF 96%. PATIENT IS REFUSING MEDICATION, UNCOOPERATIVE, CONFUSED, ANXIOUS, DISORGANIZED, PARANOID, COMBATIVE WITH CARE AND NEEDS REDIRECTION. PATIENT IS CONFUSED BUT DENIES SUICIDE IDEATIONS AND HOMICIDAL IDEATIONS AT THIS TIME. PATIENT ASSISTED WITH TURNING AND REPOSITIONING Q 2HRS AND PRN FOR COMFORT AND CIRCULATION. PATIENT HAS NO NEEDS AT THIS TIME. PATIENT EDUCATED ON THE USE OF THE CALL RUBIO. PATIENT BED SIDE RAILS UP X 2 FOR SAFETY, BED IS LOCKED, LOW, AND I WILL CONTINUE TO MONITOR AND MAINTAIN SAFETY Q15 MIN WITH THE HELP OF STAFF.
[2018-04-27 20:14] VITALS: BP 123/72
--- NOTE | 2018-04-27 20:15 | NUR ---
GPS RN NOTE, PATIENT VITAL SIGNS ARE FOLLOWS B/P 186/85, TEMP 98.1, PULSE 79, SPO2 96%, AND RESPIRATIONS 18. PAGED [facility] AND INFORMED DR JACQUES OF MY FINDINGS. DR JACQUES ORDERED CLONIDINE HCL 0.1MG 24HR PT WK 1EA TD Q7 DAYS. ALL ORDERS NOTED AND CARRIED OUT WILL CONTINUE TO MONITOR THIS PATIENT.
[2018-04-27] MEDS: CLONIDINE HCL 0.1MG/24H PTWK 1 EA PATCH TD SCH (20:57)
[2018-04-27] MEDS: ATORVASTATIN 10 MG TABLET PO SCH (21:32)
--- NOTE | 2018-04-27 21:32 | NUR ---
GPS RN NOTE, PATIENT REFUSED TO TAKE RISPERDAL 1 MG PO Q12HR AND LIPITOR 10 MG PO HS. OFFERED RISPERDAL AND LIPITOR THREE TIMES AND STILL PATIENT REFUSED STATING, " MEDICATION WHAT MEDICATION I DON'T NEED ANY MEDICATION ". EDUCATED THIS PATIENT ON THE RISKS AND BENEFITS OF TAKING AND REFUSING AFOREMENTIONED MEDICATIONS. WILL CONTINUE TO MONITOR THIS PATIENT.
--- NOTE | 2018-04-27 22:23 | NUR ---
GPS RN NOTE, PATIENT IS CONSERVED AND HAS REFUSED RISPERDAL 1 MG PO Q12HR @2. PATIENT GIVEN ZYPREXA 2.5MG IM Q12HR PRN FOR REFUSING RISPERDAL 1MG PO Q12HR. WILL CONTINUE TO MONITOR THIS PATIENT.
[2018-04-28 08:00] VITALS: BP 136/78
[2018-04-28] MEDS: FOLIC ACID 1 MG TABLET PO SCH (08:27)
[2018-04-28] MEDS: ASPIRIN EC 81 MG TABLET.DR PO SCH (08:27)
[2018-04-28] MEDS: DOCUSATE SODIUM 100 MG CAPSULE PO SCH ×2 (08:27→17:00)
[2018-04-28] MEDS: LEVOTHYROXINE SODIUM 50 MCG TABLET PO SCH (08:27)
[2018-04-28] MEDS: PANTOPRAZOLE 40 MG TABLET.DR PO SCH (08:27)
[2018-04-28] MEDS: LOSARTAN POTASSIUM 50 MG TABLET PO SCH (08:28)
[2018-04-28] MEDS: AMLODIPINE BESYLATE 5 MG TABLET PO SCH ×2 (08:28→17:00)
[2018-04-28] MEDS: CARBAMAZEPINE 100 MG TAB.CHEW PO SCH ×2 (08:29→17:22)
[2018-04-28] MEDS: MEMANTINE HCL 5 MG TABLET PO SCH ×2 (08:29→17:22)
[2018-04-28] MEDS: hydrALAZINE HCL 50 MG TABLET PO SCH ×4 (08:29→17:00)
[2018-04-28] MEDS: ACETAMINOPHEN 325 MG TABLET PO SCH ×2 (09:00→17:00)
--- NOTE | 2018-04-28 14:13 | NUR ---
SANDI faxed SNF referral to Carmenza Navarrete at [facility] Address: [address], [place] [address] for review.
[2018-04-28] MEDS: ENSURE ENLIVE 237 ML LIQUID (VANILLA) PO SCH ×2 (14:44→17:00)
--- NOTE | 2018-04-28 14:45 | NUR ---
SW received a phone call from Kike cargo services coordinator at [facility] Address: [address] [place] [address] stating facility is considering pt and will call SW back with definite answer.
[2018-04-28] MEDS ORDERED: INVEGA SUSTENNA IM ONE (15:00)
--- NOTE | 2018-04-28 15:37 | NUR ---
SANDI received a voicemail from Hilda, client administrator at [facility] Address: [address] [place] [address] stating pts son was in her office expressing concern for pts treatment and care at the hospital. Hilda was questioning pts treatment and medications and also questioning pts food intake. SANDI will contact pts son and also contact Psychiatrist Dr. Odonnell.
--- NOTE | 2018-04-28 15:54 | NUR ---
SW contacted Psychiatrist Dr. Odonnell to inform her of voicemail received from Hilda, cloud systems administrator at [facility].
[2018-04-28 16:00] VITALS: BP 103/42
--- NOTE | 2018-04-28 16:00 | NUR ---
SANDI contacted pts son Scott [phone] and left a voicemail addressing his concerns per Hilda, active directory administrator at [facility]. SANDI informed son that pt is eating food and has had a small percentage of intake if not half of his meals per serving. SANDI explained to son that if he has more questions regarding pts food intake he can contact the nurses station and speak to pts nurse. SANDI also addressed his desire to not have pt discharged to a SNF and instead return to the Assisted Living. SANDI also informed son that MD has requested routine labs for pt. SANDI requested callback to further discuss son's concerns.
--- NOTE | 2018-04-28 17:45 | NUR ---
NURSING NOTE: PER PT'S 1:1 SITTER, PT HAS HAD 3 EPISODES OF DIARRHEA IN THE PAST 2 HOURS. UNABLE TO COLLECT SAMPLE, WILL ATTEMPT TO COLLECT BEFORE END OF SHIFT AND WILL PASS IT ON IN REPORT TO THE UPCOMING RN TO FOLLOW UP.
[2018-04-28 20:00] VITALS: BP 156/69
[2018-04-28] MEDS: ATORVASTATIN 10 MG TABLET PO SCH (20:54)
[2018-04-28] MEDS: TEMAZEPAM 7.5 MG CAPSULE PO PRN (20:55)
--- NOTE | 2018-04-28 20:56 | NUR ---
TEMAZEPAM 7.5 MG CAP PO GIVEN FOR SLEEP.
[2018-04-28] MEDS: LORAZEPAM 0.5 MG TABLET PO PRN (22:01)
[2018-04-28 22:03] LABS: BASOPHILS # (AUTO) 0.1 /CMM (0.0-0.2); EOSINOPHILS % (AUTO) 2.9 % (0.0-6.0); HEMATOCRIT 36 % (39-51); HEMOGLOBIN 12.4 g/dL (13.5-17.5); LYMPHOCYTES # (AUTO) 1.5 /CMM (0.8-4.8); LYMPHOCYTES % (AUTO) 20.5 % (20.0-44.0); MEAN CORPUSCULAR HGB CONC 34 g/dl (31.0-36.0); MEAN CORPUSCULAR VOLUME 91 fL (80-96); MONOCYTES # (AUTO) 0.7 /CMM (0.1-1.30); NEUTROPHILS # (AUTO) 4.9 /CMM (1.8-8.9); NEUTROPHILS % (AUTO) 66.6 % (43.0-81.0); PLATELET COUNT (AUTO) 295 /CMM (150-450); RED BLOOD CELL COUNT(AUTO) 3.95 MIL/uL (4.5-6.0); WHITE BLOOD COUNT (AUTO) 7.3 K/uL (4.3-11.0)
[2018-04-28 22:16] LABS: CALCIUM, SERUM 8.5 mg/dL (8.5-10.1); CARBON DIOXIDE 29 mmol/L (21-32); CHLORIDE 103 mmol/L (98-107); CREATININE 1.3 mg/dL (0.6-1.3); GLUCOSE 155 mg/dL (74-106); POTASSIUM 3.7 mmol/L (3.5-5.1); SODIUM SERUM 140 mmol/L (136-145); UREA NITROGEN, BLOOD 30 mg/dL (7-18)
[2018-04-28 22:21] LABS: ALANINE AMINOTRANSFERASE 47 U/L (12-78); ALBUMIN 3.4 g/dL (3.4-5.0); ALKALINE PHOSPHATASE 107 U/L (46-116); ASPARTATE AMINOTRANSFERASE 37 U/L (15-37); BILIRUBIN,TOTAL 0.4 mg/dL (0.2-1.0); MAGNESIUM 2.2 mg/dL (1.8-2.4)
--- NOTE | 2018-04-29 00:15 | NUR ---
CALLED DR. COLIN, RE: ABNORMAL LAB RESULTS. BUN 30, CREATININE 1.3 MD ORDERED TO ENCOURAGE PATIENT TO DRINK A LOT OF FLUIDS.
[2018-04-29 08:00] VITALS: BP 141/61
[2018-04-29] MEDS: LOSARTAN POTASSIUM 50 MG TABLET PO SCH (09:00)
[2018-04-29] MEDS: ENSURE ENLIVE 237 ML LIQUID (VANILLA) PO SCH ×3 (09:00→17:00)
[2018-04-29] MEDS: LEVOTHYROXINE SODIUM 50 MCG TABLET PO SCH (09:05)
[2018-04-29] MEDS: DOCUSATE SODIUM 100 MG CAPSULE PO SCH ×2 (09:06→17:51)
[2018-04-29] MEDS: FOLIC ACID 1 MG TABLET PO SCH (09:06)
[2018-04-29] MEDS: MEMANTINE HCL 5 MG TABLET PO SCH ×2 (09:06→17:51)
[2018-04-29] MEDS: LORAZEPAM 0.5 MG TABLET PO PRN (09:06)
[2018-04-29] MEDS: ASPIRIN EC 81 MG TABLET.DR PO SCH (09:06)
[2018-04-29] MEDS: PANTOPRAZOLE 40 MG TABLET.DR PO SCH (09:06)
[2018-04-29] MEDS: CARBAMAZEPINE 100 MG TAB.CHEW PO SCH ×2 (09:06→17:51)
[2018-04-29] MEDS: hydrALAZINE HCL 50 MG TABLET PO SCH ×3 (09:07→17:52)
[2018-04-29] MEDS: AMLODIPINE BESYLATE 5 MG TABLET PO SCH ×2 (09:07→17:52)
[2018-04-29] MEDS: ACETAMINOPHEN 325 MG TABLET PO SCH ×2 (09:10→17:51)
[2018-04-29] MEDS: OLANZAPINE 2.5 MG TABLET PO SCH ×3 (10:00→17:51)
[2018-04-29] MEDS ORDERED: OLANZAPINE 10 MG VIAL IM PRN (10:00)
[2018-04-29] MEDS ORDERED: IV NS 0.9% 1,000 ML IV PRN (10:00)
[2018-04-29 16:00] VITALS: BP 126/70
[2018-04-29 20:00] VITALS: BP 106/60
[2018-04-29] MEDS: TEMAZEPAM 7.5 MG CAPSULE PO PRN (20:51)
[2018-04-29] MEDS: ATORVASTATIN 10 MG TABLET PO SCH (20:51)
--- NOTE | 2018-04-29 20:52 | NUR ---
TEMAZEPAM 7.5 MG CAP PO GIVEN FOR SLEEP.
[2018-04-30] MEDS: LORAZEPAM 0.5 MG TABLET PO PRN (04:23)
--- NOTE | 2018-04-30 04:23 | NUR ---
PATIENT WOKE UP, AGITATED, COMBATIVE, TRYING TO HIT HIS SITTER, LOUD, YELLING AND SCREAMING. ATIVAN 0.5 MG TAB PO GIVEN.
[2018-04-30 08:00] VITALS: BP 103/68
[2018-04-30] MEDS: LOSARTAN POTASSIUM 50 MG TABLET PO SCH (09:00)
[2018-04-30] MEDS: hydrALAZINE HCL 50 MG TABLET PO SCH ×3 (09:00→16:16)
[2018-04-30] MEDS: MEMANTINE HCL 5 MG TABLET PO SCH ×2 (09:00→16:21)
[2018-04-30] MEDS: CARBAMAZEPINE 100 MG TAB.CHEW PO SCH ×2 (09:00→16:17)
[2018-04-30] MEDS: AMLODIPINE BESYLATE 5 MG TABLET PO SCH ×2 (09:00→16:17)
[2018-04-30] MEDS: ASPIRIN EC 81 MG TABLET.DR PO SCH (09:00)
[2018-04-30] MEDS: LEVOTHYROXINE SODIUM 50 MCG TABLET PO SCH (09:00)
[2018-04-30] MEDS: FOLIC ACID 1 MG TABLET PO SCH (09:00)
[2018-04-30] MEDS: ACETAMINOPHEN 325 MG TABLET PO SCH ×2 (09:00→16:32)
[2018-04-30] MEDS: OLANZAPINE 2.5 MG TABLET PO SCH ×2 (09:00→16:34)
[2018-04-30] MEDS: DOCUSATE SODIUM 100 MG CAPSULE PO SCH ×2 (09:00→16:16)
[2018-04-30] MEDS: PANTOPRAZOLE 40 MG TABLET.DR PO SCH (09:00)
[2018-04-30] MEDS: ENSURE ENLIVE 237 ML LIQUID (VANILLA) PO SCH ×3 (09:04→17:20)
[2018-04-30 09:45] LABS: CALCIUM, SERUM 8.4 mg/dL (8.5-10.1); CARBON DIOXIDE 26 mmol/L (21-32); CHLORIDE 101 mmol/L (98-107); CREATININE 1.5 mg/dL (0.6-1.3); GLUCOSE 108 mg/dL (74-106); POTASSIUM 3.6 mmol/L (3.5-5.1); SODIUM SERUM 136 mmol/L (136-145); UREA NITROGEN, BLOOD 27 mg/dL (7-18)
[2018-04-30 12:55] VITALS: BP 139/65
--- NOTE | 2018-04-30 13:49 | NUR ---
DMETRY STATE DIRECTOR IN THE UNIT, EXAMINED THE PT. AND ORDERED NS 1 LITER BOLUS X1 LITER.
[2018-04-30] MEDS ORDERED: IV NS 0.9% 1,000 ML BAG IV ONE (14:00)
[2018-04-30 16:00] VITALS: BP 133/82
--- NOTE | 2018-04-30 19:10 | NUR ---
IV OF NS DONE AT THIS TIME.
[2018-04-30 19:58] VITALS: BP 163/76
[2018-04-30 20:14] LABS: CALCIUM, SERUM 8.2 mg/dL (8.5-10.1); CARBON DIOXIDE 27 mmol/L (21-32); CHLORIDE 104 mmol/L (98-107); CREATININE 1.2 mg/dL (0.6-1.3); GLUCOSE 109 mg/dL (74-106); POTASSIUM 3.5 mmol/L (3.5-5.1); SODIUM SERUM 138 mmol/L (136-145); UREA NITROGEN, BLOOD 23 mg/dL (7-18)
[2018-04-30] MEDS: ATORVASTATIN 10 MG TABLET PO SCH (21:43)
[2018-04-30] MEDS: TEMAZEPAM 7.5 MG CAPSULE PO PRN (22:10)
[2018-05-01 07:13] LABS: BASOPHILS # (AUTO) 0.1 /CMM (0.0-0.2); BASOPHILS % (AUTO) 2.3 % (0.0-2.0); EOSINOPHILS % (AUTO) 6.7 % (0.0-6.0); HEMATOCRIT 36 % (39-51); HEMOGLOBIN 12.3 g/dL (13.5-17.5); LYMPHOCYTES # (AUTO) 1.2 /CMM (0.8-4.8); LYMPHOCYTES % (AUTO) 22.7 % (20.0-44.0); MEAN CORPUSCULAR HGB CONC 34 g/dl (31.0-36.0); MEAN CORPUSCULAR VOLUME 92 fL (80-96); MONOCYTES # (AUTO) 0.5 /CMM (0.1-1.30); MONOCYTES % (AUTO) 9.8 % (2.0-12.0); NEUTROPHILS # (AUTO) 3.1 /CMM (1.8-8.9); NEUTROPHILS % (AUTO) 58.5 % (43.0-81.0); PLATELET COUNT (AUTO) 287 /CMM (150-450); RED BLOOD CELL COUNT(AUTO) 3.93 MIL/uL (4.5-6.0); WHITE BLOOD COUNT (AUTO) 5.2 K/uL (4.3-11.0)
[2018-05-01 07:32] LABS: ALANINE AMINOTRANSFERASE 39 U/L (12-78); ALBUMIN 3.3 g/dL (3.4-5.0); ALKALINE PHOSPHATASE 97 U/L (46-116); ASPARTATE AMINOTRANSFERASE 23 U/L (15-37); BILIRUBIN,TOTAL 0.4 mg/dL (0.2-1.0); CALCIUM, SERUM 8.4 mg/dL (8.5-10.1); CARBON DIOXIDE 26 mmol/L (21-32); CHLORIDE 103 mmol/L (98-107); GLUCOSE 90 mg/dL (74-106); PHOSPHORUS 3.4 mg/dL (2.5-4.9); POTASSIUM 3.7 mmol/L (3.5-5.1); SODIUM SERUM 139 mmol/L (136-145); TOTAL PROTEIN, SERUM 6.9 g/dL (6.4-8.2); UREA NITROGEN, BLOOD 15 mg/dL (7-18)
[2018-05-01 07:36] LABS: CREATINE KINASE, TOTAL 208 U/L (39-308)
[2018-05-01 08:00] VITALS: BP 157/81
--- NOTE | 2018-05-01 08:05 | NUR ---
GPS RN NOTE: PATIENT ANXIOUS ATIVAN 0.5 MG TAB PO GIVEN.CONTINUE MONITORING.
[2018-05-01] MEDS: DOCUSATE SODIUM 100 MG CAPSULE PO SCH ×2 (08:06→16:05)
[2018-05-01] MEDS: LORAZEPAM 0.5 MG TABLET PO PRN (08:06)
[2018-05-01] MEDS: MEMANTINE HCL 5 MG TABLET PO SCH ×2 (08:06→16:06)
[2018-05-01] MEDS: ACETAMINOPHEN 325 MG TABLET PO SCH ×2 (08:06→16:06)
[2018-05-01] MEDS: PANTOPRAZOLE 40 MG TABLET.DR PO SCH (08:06)
[2018-05-01] MEDS: OLANZAPINE 2.5 MG TABLET PO SCH ×2 (08:06→16:06)
[2018-05-01] MEDS: CARBAMAZEPINE 100 MG TAB.CHEW PO SCH ×2 (08:06→16:05)
[2018-05-01] MEDS: AMLODIPINE BESYLATE 5 MG TABLET PO SCH ×2 (08:06→16:07)
[2018-05-01] MEDS: ASPIRIN EC 81 MG TABLET.DR PO SCH (08:06)
[2018-05-01] MEDS: hydrALAZINE HCL 50 MG TABLET PO SCH ×3 (08:30→16:07)
[2018-05-01] MEDS: LEVOTHYROXINE SODIUM 50 MCG TABLET PO SCH (08:30)
[2018-05-01] MEDS: FOLIC ACID 1 MG TABLET PO SCH (08:30)
[2018-05-01] MEDS: ENSURE ENLIVE 237 ML LIQUID (VANILLA) PO SCH ×3 (10:18→16:06)
[2018-05-01 16:00] VITALS: BP 100/59
[2018-05-01 20:00] VITALS: BP 146/80
--- NOTE | 2018-05-01 20:00 | NUR ---
NURSING NOTE: RECEIVED PT WITH 1:1 SITTER, PT IS A/A/OX1 , CONFUSED, DISORGANIZED, SITTING IN THE CHAIR AND IS AGGRESSIVE. NO SOB, NO PAIN NOTED AT THIS TIME.ALL SAFETY MEASURES ARE IMPLEMENTED. WILL CONTINUE TO MONITOR AND PT REPORT WILL BE GIVEN AM TO THE UPCOMING RN FOR HAND CUTTER.
[2018-05-01] MEDS: TEMAZEPAM 7.5 MG CAPSULE PO PRN (22:23)
[2018-05-01] MEDS: ATORVASTATIN 10 MG TABLET PO SCH (22:23)
[2018-05-02] MEDS: LORAZEPAM 0.5 MG TABLET PO PRN (04:14)
[2018-05-02 08:00] VITALS: BP 160/61
[2018-05-02] MEDS: CARBAMAZEPINE 100 MG TAB.CHEW PO SCH ×2 (08:21→17:06)
[2018-05-02] MEDS: hydrALAZINE HCL 50 MG TABLET PO SCH ×3 (08:21→17:00)
[2018-05-02] MEDS: LEVOTHYROXINE SODIUM 50 MCG TABLET PO SCH (08:22)
[2018-05-02] MEDS: MEMANTINE HCL 5 MG TABLET PO SCH ×2 (08:22→17:00)
[2018-05-02] MEDS: PANTOPRAZOLE 40 MG TABLET.DR PO SCH (08:22)
[2018-05-02] MEDS: OLANZAPINE 2.5 MG TABLET PO SCH ×2 (08:22→17:04)
[2018-05-02] MEDS: ACETAMINOPHEN 325 MG TABLET PO SCH ×2 (08:22→17:00)
[2018-05-02] MEDS: FOLIC ACID 1 MG TABLET PO SCH (08:22)
[2018-05-02] MEDS: DOCUSATE SODIUM 100 MG CAPSULE PO SCH ×2 (08:22→17:07)
[2018-05-02] MEDS: ENSURE ENLIVE 237 ML LIQUID (VANILLA) PO SCH ×3 (08:23→17:05)
[2018-05-02] MEDS: AMLODIPINE BESYLATE 5 MG TABLET PO SCH ×2 (08:23→17:00)
[2018-05-02] MEDS: ASPIRIN EC 81 MG TABLET.DR PO SCH (08:23)
[2018-05-02 12:09] LABS: PTH, INTACT 44 pg/mL (15-65)
[2018-05-02 12:43] LABS: APPEARANCE,URINE CLEAR (CLEAR); BILIRUBIN,URINE NEGATIVE (NEGATIVE); BLOOD, URINE NEGATIVE Ery/uL (NEGATIVE); COLOR,URINE YELLOW (YELLOW); KETONES,URINE 1+ (NEGATIVE); LEUKOCYTE ESTERASE ,URINE NEGATIVE (NEGATIVE); NITRITE, URINE NEGATIVE (NEGATIVE); PROTEIN,URINE NEGATIVE (NEGATIVE); UGLUCOSE NEGATIVE (NEGATIVE); UROBILINOGEN,URINE 0.2 EU/dL (0.2)
[2018-05-02 12:59] LABS: CREATININE, URINE 105.5 MG/DL (30.0-125.0); URINE TOTAL PROTEIN 15.2 mg/dL (0-11.9)
[2018-05-02 13:21] LABS: RBC,URINE NONE SEEN /HPF (0-2); WBC,URINE 0-2 /HPF (0-3)
[2018-05-02 13:22] LABS: BACTERIA,URINE Rare /HPF (None Seen); SQUAMOUS EPITHELIAL CELL,UR Few /HPF (None Seen)
[2018-05-02 13:23] LABS: EOSINOPHIL,URINE None Seen
--- NOTE | 2018-05-02 15:45 | NUR ---
RN NOTES PATIENT WAS COMPLAINING OF UPPER EPIGASTRIC AREA PAIN , BUT PAIN WASN'T TRANSFERRING ON RIGHT CHEST AREA, AND HAS PAIN WHEN MOVING. V/S TAKEN STABLE, CALLED DR GUTIERREZ AND GET TO ORDER STAT CHEST X-RAY, STAT EKG, AND STAT TROPONIN. ORDER TAKEN AND CARRIED OUT.
[2018-05-02 16:00] VITALS: BP 109/68
[2018-05-02 16:58] LABS: CALCIUM, SERUM 8.2 mg/dL (8.5-10.1); CARBON DIOXIDE 30 mmol/L (21-32); CHLORIDE 101 mmol/L (98-107); CREATININE 1.1 mg/dL (0.6-1.3); GLUCOSE 104 mg/dL (74-106); POTASSIUM 3.6 mmol/L (3.5-5.1); SODIUM SERUM 138 mmol/L (136-145); UREA NITROGEN, BLOOD 18 mg/dL (7-18)
--- NOTE | 2018-05-02 19:30 | NUR ---
GPS RN NOTE, RECEIVED PATIENT AWAKE AND IN BED, NO S/S OR COMPLAINTS OF PAIN AT THIS TIME. PATIENT IS DISPLAYING NO S/S OF APPARENT DISTRESS AT THIS TIME. PATIENT BREATHING IS UNLABORED WITH EQUAL RISE AND FALL OF THE CHEST. PATIENT IS ALERT AND ORIENTED X 1 ON ROOM AIR WITH A SPO2 OF 95%. PATIENT HAS A ONE TO ONE SITTER FOR HIGH FALL RISK. PATIENT IS SELECTIVE WITH MEDICATION, COOPERATIVE, CONFUSED, ANXIOUS, DISORGANIZED, PARANOID, COMBATIVE WITH CARE AND NEEDS REDIRECTION. PATIENT IS CONFUSED BUT DENIES SUICIDE IDEATIONS AND HOMICIDAL IDEATIONS AT THIS TIME. PATIENT ASSISTED WITH TURNING AND REPOSITIONING Q 2HRS AND PRN FOR COMFORT AND CIRCULATION. PATIENT HAS NO NEEDS AT THIS TIME. PATIENT EDUCATED ON THE USE OF THE CALL RUBIO. PATIENT BED SIDE RAILS UP X 2 FOR SAFETY, BED IS LOCKED, LOW, AND I WILL CONTINUE TO MONITOR AND MAINTAIN SAFETY Q15 MIN WITH THE HELP OF STAFF.
[2018-05-02 20:00] VITALS: BP 150/96
[2018-05-02] MEDS: ATORVASTATIN 10 MG TABLET PO SCH (21:17)
[2018-05-03 08:00] VITALS: BP 177/72
[2018-05-03] MEDS: DOCUSATE SODIUM 100 MG CAPSULE PO SCH ×2 (09:00→17:22)
[2018-05-03] MEDS: LEVOTHYROXINE SODIUM 50 MCG TABLET PO SCH (10:08)
[2018-05-03] MEDS: AMLODIPINE BESYLATE 5 MG TABLET PO SCH ×2 (10:08→17:00)
[2018-05-03] MEDS: CARBAMAZEPINE 100 MG TAB.CHEW PO SCH ×2 (10:08→17:24)
[2018-05-03] MEDS: FOLIC ACID 1 MG TABLET PO SCH (10:08)
[2018-05-03] MEDS: MEMANTINE HCL 5 MG TABLET PO SCH ×2 (10:09→17:22)
[2018-05-03] MEDS: PANTOPRAZOLE 40 MG TABLET.DR PO SCH (10:09)
[2018-05-03] MEDS: ASPIRIN EC 81 MG TABLET.DR PO SCH (10:09)
[2018-05-03] MEDS: hydrALAZINE HCL 50 MG TABLET PO SCH ×3 (10:09→17:00)
[2018-05-03] MEDS: ACETAMINOPHEN 325 MG TABLET PO SCH ×2 (10:09→17:22)
[2018-05-03] MEDS: OLANZAPINE 2.5 MG TABLET PO SCH ×2 (10:10→17:22)
[2018-05-03] MEDS: LORAZEPAM 0.5 MG TABLET PO PRN (10:10)
[2018-05-03] MEDS: ENSURE ENLIVE 237 ML LIQUID (VANILLA) PO SCH ×3 (10:11→17:40)
[2018-05-03 11:03] LABS: BASOPHILS # (AUTO) 0.1 /CMM (0.0-0.2); BASOPHILS % (AUTO) 2.4 % (0.0-2.0); EOSINOPHILS % (AUTO) 5.8 % (0.0-6.0); HEMATOCRIT 33 % (39-51); HEMOGLOBIN 11.3 g/dL (13.5-17.5); LYMPHOCYTES # (AUTO) 1.3 /CMM (0.8-4.8); LYMPHOCYTES % (AUTO) 27.7 % (20.0-44.0); MEAN CORPUSCULAR HGB CONC 34 g/dl (31.0-36.0); MEAN CORPUSCULAR VOLUME 92 fL (80-96); MONOCYTES # (AUTO) 0.5 /CMM (0.1-1.30); MONOCYTES % (AUTO) 10.9 % (2.0-12.0); NEUTROPHILS # (AUTO) 2.5 /CMM (1.8-8.9); NEUTROPHILS % (AUTO) 53.2 % (43.0-81.0); PLATELET COUNT (AUTO) 253 /CMM (150-450); RED BLOOD CELL COUNT(AUTO) 3.62 MIL/uL (4.5-6.0); WHITE BLOOD COUNT (AUTO) 4.7 K/uL (4.3-11.0)
[2018-05-03 11:22] LABS: ALANINE AMINOTRANSFERASE 32 U/L (12-78); ALKALINE PHOSPHATASE 87 U/L (46-116); ASPARTATE AMINOTRANSFERASE 18 U/L (15-37); BILIRUBIN,TOTAL 0.3 mg/dL (0.2-1.0); CALCIUM, SERUM 8.1 mg/dL (8.5-10.1); CARBON DIOXIDE 31 mmol/L (21-32); CHLORIDE 97 mmol/L (98-107); GLUCOSE 127 mg/dL (74-106); MAGNESIUM 1.8 mg/dL (1.8-2.4); POTASSIUM 3.5 mmol/L (3.5-5.1); SODIUM SERUM 130 mmol/L (136-145); TOTAL PROTEIN, SERUM 6.3 g/dL (6.4-8.2); UREA NITROGEN, BLOOD 12 mg/dL (7-18)
[2018-05-03 16:08] VITALS: BP 101/56
[2018-05-03 20:17] VITALS: BP 134/67
--- NOTE | 2018-05-03 20:30 | NUR ---
GPS RN NOTE, PATIENT REFUSED TO HAVE PICTURES TAKEN TODAY. OFFERED TO TAKE PICTURES THREE TIMES AND STILL PATIENT REFUSED STATING, " NO I'M OK, I DON'T WANT TO TAKE ANY PICTURES TODAY ". EDUCATED THIS PATIENT ON OUR PICTURE POLICY. WILL CONTINUE TO MONITOR THIS PATIENT.
[2018-05-03] MEDS: ATORVASTATIN 10 MG TABLET PO SCH (21:24)
[2018-05-04] MEDS: TEMAZEPAM 7.5 MG CAPSULE PO PRN ×2 (02:51→21:26)
--- NOTE | 2018-05-04 02:51 | NUR ---
GPS RN NOTE, PATIENT HAS A COMPLAINT OF NOT BEING ABLE TO SLEEP AND IS REQUESTING RESTORIL AT THIS TIME. PATIENT VITAL SIGNS ARE STABLE. GAVE RESTORIL 7.5MG PO HS ORDERED. WILL REASSESS FOR INSOMNIA AND I WILL CONTINUE TO MONITOR THIS PATIENT.
[2018-05-04 07:07] LABS: *SPE ALBUMIN 3.1 g/dL (2.9-4.4); *SPE ALPHA-1-GLOBULIN 0.3 g/dL (0.0-0.4); *SPE ALPHA-2-GLOBULIN 0.7 g/dL (0.4-1.0); *SPE M-SPIKE Not Observed g/dL (Not Observed)
[2018-05-04 08:00] VITALS: BP 140/90
[2018-05-04] MEDS: LEVOTHYROXINE SODIUM 50 MCG TABLET PO SCH (08:09)
[2018-05-04] MEDS: PANTOPRAZOLE 40 MG TABLET.DR PO SCH (08:09)
[2018-05-04] MEDS: ASPIRIN EC 81 MG TABLET.DR PO SCH (08:09)
[2018-05-04] MEDS: ACETAMINOPHEN 325 MG TABLET PO SCH ×2 (08:09→17:10)
[2018-05-04] MEDS: MEMANTINE HCL 5 MG TABLET PO SCH ×2 (08:09→17:09)
[2018-05-04] MEDS: FOLIC ACID 1 MG TABLET PO SCH (08:09)
[2018-05-04] MEDS: DOCUSATE SODIUM 100 MG CAPSULE PO SCH ×2 (08:10→17:09)
[2018-05-04] MEDS: AMLODIPINE BESYLATE 5 MG TABLET PO SCH ×2 (08:10→17:09)
[2018-05-04] MEDS: CARBAMAZEPINE 100 MG TAB.CHEW PO SCH (08:10)
[2018-05-04] MEDS: OLANZAPINE 2.5 MG TABLET PO SCH ×2 (08:10→17:08)
[2018-05-04] MEDS: hydrALAZINE HCL 50 MG TABLET PO SCH ×3 (08:11→17:09)
--- NOTE | 2018-05-04 09:54 | NUR ---
SANDI contacted pts son Scott [phone] and left a voicemail for callback.
[2018-05-04] MEDS: LORAZEPAM 0.5 MG TABLET PO PRN (10:52)
[2018-05-04] MEDS: ENSURE ENLIVE 237 ML LIQUID (VANILLA) PO SCH ×3 (12:13→17:20)
[2018-05-04 12:49] LABS: CALCIUM, SERUM 8.1 mg/dL (8.5-10.1); CARBON DIOXIDE 33 mmol/L (21-32); CHLORIDE 100 mmol/L (98-107); CREATININE 0.9 mg/dL (0.6-1.3); GLUCOSE 94 mg/dL (74-106); MAGNESIUM 1.9 mg/dL (1.8-2.4); POTASSIUM 3.8 mmol/L (3.5-5.1); SODIUM SERUM 132 mmol/L (136-145); UREA NITROGEN, BLOOD 14 mg/dL (7-18)
[2018-05-04 16:00] VITALS: BP 122/69
--- NOTE | 2018-05-04 18:00 | NUR ---
RECEIVED PATIENT ASLEEP IN BED, APPEARING COMFORTABLE NO S/S OF ANY APPARENT DISTRESS AT THIS TIME. PATIENT BREATHING UNLABORED. PATIENT BREATHING ON ROOM AIR, O2 SAT 96%, PATIENT COOPERATED WITH ALL MEDS GIVEN; PATIENT REPEATEDLY TOUCHED THE 1:1 SITTER INAPPROPRIATELY; PATIENT EDUCATED SEVERAL OF PROPER BEHAVIOR WITH SITTER; PATIENT WAS GIVEN PRN ATIVAN AFTER REMOVING HIS CLOTHES SEVERAL TIMES MECHANICAL SOFT DIET ORDERED IN AN EFFORT FOR PATIENT TO EAT MORE THAN 40% OF FOOD; PATIENT ASSISTED WITH TURNING AND REPOSITIONING Q2HR AND PRN FOR COMFORT AND CIRCULATION. PATIENT HAS NO NEEDS AT THIS TIME; BED IS LOCKED AND LOW WILL CONTINUE TO MONITOR AND MAINTAIN SAFETY
[2018-05-04 20:00] VITALS: BP 118/75
[2018-05-04] MEDS: CLONIDINE HCL 0.1MG/24H PTWK 1 EA PATCH TD SCH (20:30)
[2018-05-04] MEDS: ATORVASTATIN 10 MG TABLET PO SCH (21:26)
[2018-05-05] MEDS: LORAZEPAM 0.5 MG TABLET PO PRN (01:07)
--- NOTE | 2018-05-05 01:07 | NUR ---
GPS-RN PRN NOTES: PATIENT IS ANXIOUS AND RESTLESS. ADMINISTERED ATIVAN 0.5MG PO ORDERED. WILL CONTINUE TO MONITOR CLOSELY PATIENT'S SAFETY AND BEHAVIOR.
[2018-05-05 07:04] LABS: BASOPHILS # (AUTO) 0.1 /CMM (0.0-0.2); BASOPHILS % (AUTO) 1.8 % (0.0-2.0); EOSINOPHILS % (AUTO) 7.2 % (0.0-6.0); HEMATOCRIT 32 % (39-51); LYMPHOCYTES # (AUTO) 1.4 /CMM (0.8-4.8); LYMPHOCYTES % (AUTO) 32.1 % (20.0-44.0); MEAN CORPUSCULAR HGB CONC 34 g/dl (31.0-36.0); MEAN CORPUSCULAR VOLUME 92 fL (80-96); MONOCYTES # (AUTO) 0.5 /CMM (0.1-1.30); MONOCYTES % (AUTO) 11.9 % (2.0-12.0); PLATELET COUNT (AUTO) 262 /CMM (150-450); RED BLOOD CELL COUNT(AUTO) 3.51 MIL/uL (4.5-6.0); WHITE BLOOD COUNT (AUTO) 4.4 K/uL (4.3-11.0)
[2018-05-05 07:25] LABS: ALANINE AMINOTRANSFERASE 25 U/L (12-78); ALBUMIN 2.8 g/dL (3.4-5.0); ALKALINE PHOSPHATASE 79 U/L (46-116); ASPARTATE AMINOTRANSFERASE 16 U/L (15-37); BILIRUBIN,TOTAL 0.2 mg/dL (0.2-1.0); CALCIUM, SERUM 8.4 mg/dL (8.5-10.1); CARBON DIOXIDE 29 mmol/L (21-32); CHLORIDE 104 mmol/L (98-107); CREATININE 0.8 mg/dL (0.6-1.3); GLUCOSE 93 mg/dL (74-106); MAGNESIUM 1.9 mg/dL (1.8-2.4); PHOSPHORUS 3.1 mg/dL (2.5-4.9); POTASSIUM 3.7 mmol/L (3.5-5.1); SODIUM SERUM 138 mmol/L (136-145); TOTAL PROTEIN, SERUM 6.1 g/dL (6.4-8.2); UREA NITROGEN, BLOOD 13 mg/dL (7-18)
[2018-05-05 07:27] LABS: THYROID STIMULATING HORMONE 2.351 uIU/mL (0.358-3.74); URIC ACID 5.7 mg/dL (2.6-7.2)
[2018-05-05 08:00] VITALS: BP 143/74
[2018-05-05] MEDS: MEMANTINE HCL 5 MG TABLET PO SCH ×3 (09:00→17:11)
[2018-05-05] MEDS: hydrALAZINE HCL 50 MG TABLET PO SCH ×4 (09:00→17:00)
[2018-05-05] MEDS: DOCUSATE SODIUM 100 MG CAPSULE PO SCH ×3 (09:00→17:11)
[2018-05-05] MEDS: ENSURE ENLIVE 237 ML LIQUID (VANILLA) PO SCH ×4 (09:00→17:16)
[2018-05-05] MEDS: ACETAMINOPHEN 325 MG TABLET PO SCH ×3 (09:00→17:12)
[2018-05-05] MEDS: AMLODIPINE BESYLATE 5 MG TABLET PO SCH ×3 (09:00→17:00)
--- NOTE | 2018-05-05 09:30 | NUR ---
EATING MINIMALLY,REFUSED MOST OF MEDS EXCEPT ZYPREXA.HAS 1:1 SITTER.
[2018-05-05] MEDS: LEVOTHYROXINE SODIUM 50 MCG TABLET PO SCH (09:52)
[2018-05-05] MEDS: PANTOPRAZOLE 40 MG TABLET.DR PO SCH (09:54)
[2018-05-05] MEDS: ASPIRIN EC 81 MG TABLET.DR PO SCH (09:54)
[2018-05-05] MEDS: FOLIC ACID 1 MG TABLET PO SCH (09:54)
[2018-05-05] MEDS: OLANZAPINE 2.5 MG TABLET PO SCH (09:55)
--- NOTE | 2018-05-05 10:45 | NUR ---
SPOKE TO AL COWART STRAP FOLDING MACHINE OPERATOR RE: NEED FOR URINE SAMPLE PREVIOUSLY ORDERED. STATED TO TRY AND ATTEMPT TO USE URINAL TO GET URINE,DOES NOT WANT IN AND OUT CATH.
--- NOTE | 2018-05-05 14:20 | NUR ---
SANDI contacted pts son Scott [phone] and left a voicemail for callback.
[2018-05-05 16:00] VITALS: BP 108/78
--- NOTE | 2018-05-05 18:11 | NUR ---
VERY RELUCTANT TO TAKE MEDS ALL DAY-NEEDS TO BE COAXED AND ENCOURAGED.
[2018-05-05 20:00] VITALS: BP 142/66
[2018-05-05] MEDS: ATORVASTATIN 10 MG TABLET PO SCH (21:42)
[2018-05-05] MEDS: OLANZAPINE 5 MG TABLET PO SCH (21:42)
[2018-05-06 07:27] LABS: BASOPHILS % (AUTO) 0.7 % (0.0-2.0); HEMATOCRIT 32 % (39-51); LYMPHOCYTES # (AUTO) 1.5 /CMM (0.8-4.8); LYMPHOCYTES % (AUTO) 34.6 % (20.0-44.0); MEAN CORPUSCULAR HGB CONC 34 g/dl (31.0-36.0); MEAN CORPUSCULAR VOLUME 92 fL (80-96); MONOCYTES # (AUTO) 0.4 /CMM (0.1-1.30); MONOCYTES % (AUTO) 8.8 % (2.0-12.0); NEUTROPHILS # (AUTO) 2.1 /CMM (1.8-8.9); NEUTROPHILS % (AUTO) 49.9 % (43.0-81.0); PLATELET COUNT (AUTO) 287 /CMM (150-450); WHITE BLOOD COUNT (AUTO) 4.3 K/uL (4.3-11.0)
[2018-05-06] MEDS: PANTOPRAZOLE 40 MG TABLET.DR PO SCH (07:30)
[2018-05-06 08:00] VITALS: BP 127/68
[2018-05-06] MEDS: FOLIC ACID 1 MG TABLET PO SCH (09:00)
[2018-05-06] MEDS: hydrALAZINE HCL 50 MG TABLET PO SCH ×3 (09:00→17:25)
[2018-05-06] MEDS: AMLODIPINE BESYLATE 5 MG TABLET PO SCH ×2 (09:00→17:24)
[2018-05-06] MEDS: MEMANTINE HCL 5 MG TABLET PO SCH ×2 (09:00→17:25)
[2018-05-06] MEDS: DOCUSATE SODIUM 100 MG CAPSULE PO SCH ×2 (09:00→17:24)
[2018-05-06] MEDS: ENSURE ENLIVE 237 ML LIQUID (VANILLA) PO SCH ×3 (09:00→17:25)
[2018-05-06] MEDS: ACETAMINOPHEN 325 MG TABLET PO SCH ×2 (09:00→17:24)
[2018-05-06] MEDS: ASPIRIN EC 81 MG TABLET.DR PO SCH (09:00)
[2018-05-06] MEDS: LEVOTHYROXINE SODIUM 50 MCG TABLET PO SCH (09:00)
[2018-05-06] MEDS: OLANZAPINE 2.5 MG TABLET PO SCH (09:04)
--- NOTE | 2018-05-06 09:57 | NUR ---
SW contacted pts son Scott [phone] and left a voicemail informing him that Psychiatrist has ordered D/C to [facility] for tomorrow 05/07/18. SW informed son that Psychiatrist had contacted engineer system administrator Hilda at [facility] to inform her of discharged and stated Hilda would be coming on on this present day to assess pt. SW also requested callback to arrange transportation.
--- NOTE | 2018-05-06 10:02 | NUR ---
SANDI contacted [facility] Address: [address] [place] [address] and spoke with Peña, accounting administrator regarding pts discharge scheduled for tomorrow 05/07/18. Per Peña she stated that Hilda and son would be coming to visit pt on this present day to assess pt and verify if he is ready for discharge. SANDI requested a callback from Hilda to coordinate visit.
--- NOTE | 2018-05-06 10:53 | NUR ---
SANDI contacted Hilda, public service administrator at [facility] Address: [address], [place] [address] and left voicemail requesting a callback to discuss pts discharge back to her facility.
[2018-05-06] MEDS ORDERED: [UNRECOGNIZED DRUG - OTHER] IM ONE (11:00)
[2018-05-06 12:14] LABS: URINE SODIUM, RANDOM 52 mmol/l (40-220)
--- NOTE | 2018-05-06 12:25 | NUR ---
SANDI spoke with psychiatrist Dr. Odonnell regarding discharge to [facility] and SW being unable to communicate with credit control administrator. informed SANDI that she spoke with Hilda, credit control administrator at [facility] Address: [address] [place] [address] who informed her she would not be able to assess pt on this present day and would come tomorrow 05/07/18. informed Hilda that pt will be discharging tomorrow and advised SANDI to send referral to [facility] in case Hilda does not accept pt.
[2018-05-06 12:28] LABS: OSMOLALITY,URINE 366 mOS/kg (340-1090)
--- NOTE | 2018-05-06 12:35 | NUR ---
SANDI faxed SNF referral to Zaira director of event marketing at [facility] Address: [address], [place] [address] for review.
[2018-05-06 16:00] VITALS: BP 108/58
[2018-05-06 20:08] VITALS: BP 134/69
[2018-05-06] MEDS: OLANZAPINE 5 MG TABLET PO SCH (21:07)
[2018-05-06] MEDS: ATORVASTATIN 10 MG TABLET PO SCH (21:07)
[2018-05-06] MEDS: TEMAZEPAM 7.5 MG CAPSULE PO PRN (21:30)
[2018-05-07 07:28] LABS: BASOPHILS # (AUTO) 0.1 /CMM (0.0-0.2); BASOPHILS % (AUTO) 1.1 % (0.0-2.0); EOSINOPHILS % (AUTO) 5.7 % (0.0-6.0); HEMATOCRIT 32 % (39-51); LYMPHOCYTES # (AUTO) 1.7 /CMM (0.8-4.8); LYMPHOCYTES % (AUTO) 32.8 % (20.0-44.0); MEAN CORPUSCULAR HGB CONC 34 g/dl (31.0-36.0); MEAN CORPUSCULAR VOLUME 92 fL (80-96); MONOCYTES # (AUTO) 0.6 /CMM (0.1-1.30); MONOCYTES % (AUTO) 11.7 % (2.0-12.0); NEUTROPHILS # (AUTO) 2.5 /CMM (1.8-8.9); NEUTROPHILS % (AUTO) 48.7 % (43.0-81.0); PLATELET COUNT (AUTO) 299 /CMM (150-450); RED BLOOD CELL COUNT(AUTO) 3.49 MIL/uL (4.5-6.0); WHITE BLOOD COUNT (AUTO) 5.1 K/uL (4.3-11.0)
[2018-05-07 08:00] VITALS: BP 108/60
--- NOTE | 2018-05-07 08:30 | NUR ---
SANDI spoke with Hilda, nursing home assistant administrator at [facility] Address: [address], [place] [address] who confirmed acceptance to facility.
[2018-05-07] MEDS: PANTOPRAZOLE 40 MG TABLET.DR PO SCH (08:46)
[2018-05-07] MEDS: LEVOTHYROXINE SODIUM 50 MCG TABLET PO SCH (08:47)
[2018-05-07] MEDS: ASPIRIN EC 81 MG TABLET.DR PO SCH (08:47)
[2018-05-07] MEDS: ACETAMINOPHEN 325 MG TABLET PO SCH (08:47)
[2018-05-07] MEDS: MEMANTINE HCL 5 MG TABLET PO SCH (08:47)
[2018-05-07] MEDS: FOLIC ACID 1 MG TABLET PO SCH (08:47)
[2018-05-07] MEDS: OLANZAPINE 2.5 MG TABLET PO SCH (08:47)
[2018-05-07] MEDS: DOCUSATE SODIUM 100 MG CAPSULE PO SCH (08:47)
[2018-05-07] MEDS: hydrALAZINE HCL 50 MG TABLET PO SCH ×2 (08:50→12:19)
[2018-05-07] MEDS: AMLODIPINE BESYLATE 5 MG TABLET PO SCH (08:50)
--- NOTE | 2018-05-07 09:07 | NUR ---
SANDI spoke with pts son Scott [phone] who confirmed coal picker between 1:30-2:00pm.
--- NOTE | 2018-05-07 09:12 | NUR ---
DR. LIMON GAVE AN ORDER TO D/C TO [facility] AND TO FOLLOW UP WITH PSYCH AND MEDICAL DOCTORS. Addendum: 05/07/18 at 0914 by AUGUST GARCIA RN DR. COLIN ORDERED TO D/C 1:1
[2018-05-07] MEDS: ENSURE ENLIVE 237 ML LIQUID (VANILLA) PO SCH ×2 (09:24→12:20)
--- NOTE | 2018-05-07 10:51 | NUR ---
DR. PHAM MADE AWARE OF THE DISCHARGE AND PROVIDED A PRESCRIPTIONS.
[2018-05-07 12:19] VITALS: BP 103/53
--- NOTE | 2018-05-07 14:00 | NUR ---
GPS/RN-NOTES PATIENT WAS DISCHARGE TO [facility] TODAY. DR. COLIN AND DR. PHAM AWARE AND AGREES WITH THE DISCHARGE ORDERS. ALL DISCHARGE MEDICATIONS WAS REVIEWED WITH THE PATIENT WITH UNDERSTANDING. PATIENT DID NOT VERBALIZE SI/HI,DENIES VISUAL/AUDITORY HALLUCINATIONS AT THE TIME OF DISCHARGE. STUDENT ASSISTANCE COUNSELOR BY SON. PATIENT LEFT THE UNIT IN STABLE CONDITION ALERT ORIENTED X1. PATIENT LEFT THE UNIT WITH ALL BELONGINGS. PATIENT SIGNED EXIT CARE DISCHARGE INSTRUCTIONS, BUT REFUSED EVERYTHING ELSE, WITNESSED BY ANOTHER NURSE.
--- NOTE | 2018-05-07 14:59 | NUR ---
DISCHARGE NOTE: Pt was discharged at 2:00pm via private vehicle to [facility] Address: [address] [place] [address] . Pts son Bryant [phone] picked pt up and transported pt to the facility. Pts mood appeared euthymic with congruent affect. Pt denied suicidal/homicidal ideations and denied visual/auditory hallucinations. Pt will continue to be under the care of Psychiatrist: Dr. May Odonnell [address], [place] [address] [phone] and Woodenware Assembler: Dr. Misty Banks [address] [facility] [address] [address] [phone]. For smoking cessation, patient is cognitively impaired to be able to participate in a Nicotine Anonymous meeting. The multidisciplinary exitcare form was done, printed, signed, and given to the patient's son.
== END 2018-05-07 14:00 | DRG 885 ==
LOC: ER 00:58 → GPS 04:17
PROVIDERS: ADMIT Psychiatry & Neurology Psychiatry; ATTEND Psychiatry & Neurology Psychosomatic Medicine
DX: F29 Unspecified psychosis not due to a substance or known physiological condition (principal); N17.0 Acute kidney failure with tubular necrosis; F03.91 Unspecified dementia, unspecified severity, with behavioral disturbance; E44.0 Moderate protein-calorie malnutrition; E87.1 Hypo-osmolality and hyponatremia; F20.9 Schizophrenia, unspecified; E11.9 Type 2 diabetes mellitus without complications; E03.9 Hypothyroidism, unspecified; E78.5 Hyperlipidemia, unspecified; I10 Essential (primary) hypertension; D63.8 Anemia in other chronic diseases classified elsewhere; F32.9 Major depressive disorder, single episode, unspecified; N40.0 Benign prostatic hyperplasia without lower urinary tract symptoms; Z91.19 Patient's noncompliance with other medical treatment and regimen; Z68.25 Body mass index [BMI] 25.0-25.9, adult; F39 Unspecified mood [affective] disorder; Z73.6 Limitation of activities due to disability; D72.819 Decreased white blood cell count, unspecified; T42.1X5A Adverse effect of iminostilbenes, initial encounter; Y92.89 Other specified places as the place of occurrence of the external cause
CPT/HCPCS: 36415; 70450-TC; 71045-TC; 76770-TC; 80048-TC; 80053-TC; 80061-TC; 80076-TC; 80156-TC; 80305; 81000-TC; 82550-TC; 82570-TC; 82962-TC; 83735-TC; 83935-TC; 83970; 84100-TC; 84155; 84155-TC; 84165; 84300-TC; 84443-TC; 84484-TC; 84550-TC; 85025-TC; 87081-TC; G0480; J2060; J3490; J7030